=== PATIENT | female | born 1995 | race Caucasian/White ===

== ENCOUNTER 2017-02-23 21:12 | Emergency (ER) | payer MEDICAID ==
[2017-02-23 23:28] VITALS: BP 122/81
== END 2017-02-23 23:29 | disposition home or self-care (01) ==
LOC: ED 21:12
DX: B34.9 Viral infection, unspecified (principal)

== ENCOUNTER 2019-03-04 18:15 | Emergency (ER) | payer OTHER ==
[~2019-03-04] VITALS: Ht 162.6 cm; Wt 68.0 kg
[2019-03-04 18:21] VITALS: Ht 162.6 cm; Wt 68.0 kg
[2019-03-04 20:03] VITALS: BP 120/78
== END 2019-03-04 20:03 | disposition home or self-care (01) ==
LOC: ED 18:15
DX: S39.012A Strain of muscle, fascia and tendon of lower back, initial encounter (principal); R03.0 Elevated blood-pressure reading, without diagnosis of hypertension; X50.0XXA Overexertion from strenuous movement or load, initial encounter; Y93.89 Activity, other specified; Y92.89 Other specified places as the place of occurrence of the external cause; Y99.8 Other external cause status
CPT/HCPCS: J1885

== ENCOUNTER 2020-08-30 16:02 | Emergency (ER) | payer OTHER ==
[~2020-08-30] VITALS: Ht 162.6 cm; Wt 65.8 kg
[2020-08-30 16:04] VITALS: Ht 162.6 cm; Wt 65.8 kg
[2020-08-30 17:44] LABS: CALCIUM 9.5 mg/dL (8.5-10.1); CARBON DIOXIDE 27.2 mmol/L (21-32); CHLORIDE SERUM 101 mmol/L (98-107); CREATININE SERUM 0.7 mg/dL (0.6-1.0); GFR1 > 60 mL/min; GLUCOSE SERUM 81 mg/dL (74-106); POTASSIUM SERUM 4.2 mmol/L (3.5-5.1); SODIUM SERUM 139 mmol/L (136-145)
[2020-08-30 17:49] LABS: ALBUMIN 4.7 g/dL (3.4-5.0); ALKALINE PHOSPHATASE 71 U/L (46-116); ALT/SGPT 33 U/L (14-59); AST/SGOT 20 U/L (15-37); BILIRUBIN TOTAL 0.5 mg/dL (0.20-1.00); LIPASE 118 IU/L (73-393)
[2020-08-30 17:51] LABS: TOTAL PROTEIN, SERUM 8.4 g/dL (6.4-8.2)
[2020-08-30 18:11] LABS: BASOPHIL % 0.2 % (0.2-1.3); PLATELET COUNT 280 x10^3mcL (179-408); RED CELL DISTRIBUTION WIDTH 13.5 % (12.3-17.7)
[2020-08-30 19:00] VITALS: BP 118/78
== END 2020-08-30 19:00 | disposition home or self-care (01) ==
LOC: ED 16:02
PROVIDERS: Emergency Medicine
DX: R10.816 Epigastric abdominal tenderness (principal); R11.2 Nausea with vomiting, unspecified; R19.7 Diarrhea, unspecified